=== PATIENT | female | born 1965 | race Caucasian/White ===

== ENCOUNTER → 2017-11-11 08:40 | Outpatient (CLI) | payer OTHER, SELFPAY ==
[2017-11-11 09:42] VITALS: PULSE 68; PULSE 70
== END ==
PROVIDERS: PCP Family Medicine; Visit Provider Internal Medicine
DX: R06.02 Shortness of breath (principal); I25.10 Atherosclerotic heart disease of native coronary artery without angina pectoris; I49.3 Ventricular premature depolarization; I34.0 Nonrheumatic mitral (valve) insufficiency; Q21.1 Atrial septal defect
CPT/HCPCS: 94060; 94640; 94726; 94729

== ENCOUNTER 2023-08-14 09:20 | Observation (INO) | payer MEDICARE, SELFPAY ==
--- NOTE | 2023-08-14 09:26 | PC.NURSE ---
arrived by ambulance stretcher from [facility]
[2023-08-14 09:50] VITALS: PULSE 80
[2023-08-14 09:52] VITALS: BP 119/75; PULSE 84; RESP 18; TEMP 36.7; O2SAT 91; BMI 25.2
[2023-08-14 10:21] LABS: Troponin I < 0.01 ng/ml (0.00-0.034)
--- NOTE | 2023-08-14 10:31 | P.CONPHA_ITS ---
Pharmacy Intervention Comments: MEDICATION RECONCILIATION COMPLETE USING LIST FROM [facility], EXTERNAL PHARMACY FILL HISTORY, AND DAVID REPORT.
--- NOTE | 2023-08-14 10:31 | HMH.PHAINT1 ---
Pharmacy Intervention Comments: MEDICATION RECONCILIATION COMPLETE USING LIST FROM [facility], EXTERNAL PHARMACY FILL HISTORY, AND DAVID REPORT.
[2023-08-14 10:38] LABS: Thyroid Stimulating Hormone 0.65 uIU/mL (0.465-4.68)
--- NOTE | 2023-08-14 11:03 | ECG_ITS ---
APPROVED REPORT Exam: Resting ECG HR:80 bpm ECG Measurements Heart Rate 80 AXES AL 183 P 47 QRSd 126 QRS 47 QT 409 T 103 QTc 445 Conclusion SINUS RHYTHM MODERATE INTRAVENTRICULAR CONDUCTION DELAY [110+ ms QRS DURATION] NONSPECIFIC ST & T-WAVE ABNORMALITY BORDERLINE ECG Electronically signed by : MICHEAL CASTILLO, 08/15/2023 00:14:18
[2023-08-14 11:05] LABS: Hemoglobin A1C 4.8 % (4.0-6.0)
--- NOTE | 2023-08-14 11:11 | P.HP_ITS ---
History of Present Illness *Admission Date: 08/14/23 *Reason for visit:: Chest pain, anxiety *History of present illness: Ms. Cortes is a 57-year-old female with history of severe anxiety, issues including history of patent foramen ovale. Status post closure of PFO, mitral valve repair in 2019, Maze procedure. Continues to smoke. Has history of CAD. Follows with cardiology in [place]. She has presented twice in the past 24 hours to the ER in [place] and subsequently in [place] with complaint of chest pain and palpitations. On arrival to the ER, her troponins were 11 and 12. EKG showed concern for some T wave inversions. Given her cardiac history, tobacco use disorder, and complaint of chest pain, cardiology was contacted for transfer for further evaluation. Patient was accepted for transfer. On arrival to [facility], patient is hemodynamically stable. Blood pressure was e levated with systolics in the 150s on arrival to the ER at [place]. Blood pressures in the 1 teens on arrival to [facility]. Chest pain appears resolved. Complaining of having frequent PVCs. She is stable on room air. States the symptoms have been longstanding but worse over the past 24 to 48 hours leading to her going to the ER. Denies any nausea, vomiting. Has significant complain about anxiety. Speech is tangential. States she is on Klonopin 3 times a day and without it she has withdrawal symptoms. History of seizure for which she takes Lamictal. No history of seizure in over 13 years. is with her in the bed. [facility] Disclaimer: The information contained in this section may have been updated after the patient was seen, as this information can be updated by other users. Medical History Cataract Post-op pain Pre-op evaluation Surgical History S/P ACL repair History of cholecystectomy S/P mitral valve repair Family History Other No significant family history Social History Smoking Status: Current every day smoker tobacco type: cigarettes alcohol intake: never current occupational status: unemployed and disabled Travel in the last 8 weeks: None household members: spouse Review of Systems Review of Systems Review of systems (narrative): 14 point review of systems performed, pertinent positives and negatives as per HPI Meds Home Medications and Allergies Home Medications Medication Instructions Recorded Confirmed Type clonazepam 0.5 mg tablet (Klonopin) 1 mg PO TIDP PRN Anxiety 10/07/17 08/14/23 History lamotrigine 100 mg tablet 200 mg PO BID 10/07/17 08/14/23 History New Prescriptions to Start Prescriptions: Allergies Allergy/AdvReac Type Severity Reaction Status Date / Time sulfamethoxazole Allergy Verified 08/14/23 09:41 [From Bactrim] trimethoprim [From Bactrim] Allergy Verified 08/14/23 09:41 adhesive AdvReac Verified 12/12/17 14:10 Exam Data for Last 24 hours Vital signs and Labs for Last 24 Hours: Temp Pulse Resp BP Pulse Ox O2 Del Method 98.0 F 84 18 119/75 91 L Room Air 08/14/23 09:52 08/14/23 09:52 08/14/23 09:52 08/14/23 09:52 08/14/23 09:52 08/14/23 09:52 Laboratory Results - last 24 hr 08/14/23 09:40: Hemoglobin A1c 4.8, Troponin I < 0.01, TSH 0.65 I & O for Last 24 hours: Intake & Output 08/11/23 08/12/23 08/13/23 08/14/23 23:59 23:59 23:59 23:59 Weight 73.028 kg Constitutional Constitutional: no acute distress, average body habitus, chronically ill appearing and disheveled *Routine HEENT Exam Head: Present normocephalic Eye: Present EOMI and PERRL ENT: Present mucous membranes moist *Routine Neck Exam Neck: Present supple; Absent lymphadenopathy *Routine Respiratory Exam Respiratory: Present CTA bilaterally; Absent rhonchi, wheezes or crackles *Routine Cardiovascular Exam Cardiovascular: Present RRR *Routine Abdominal Exam Abdominal: Present soft and normoactive bowel sounds; Absent tenderness *Routine Rectal Exam Rectal:: deferred *Routine Genitalia Exam Genitalia:: deferred *Routine Extremities Exam Extremities: Absent cyanosis, clubbing or edema *Routine Skin Exam Skin: Present intact and warm; Absent rash *Routine Neurological Exam Neurological: Present alert, oriented X3 and moving all extremities; Absent altered mental status Routine Psychiatric Exam Psychiatric: Present anxious Assessment and Plan *Assessment and plan (1) Atypical angina: Status: Acute Category: Medical Code(s): I20.89 - Other forms of angina pectoris (2) Symptomatic PVCs: Status: Chronic Category: Medical Code(s): I49.3 - Ventricular premature depolarization (3) CAD (coronary artery disease): Status: Chronic Qualifiers: Associated angina: without angina Coronary Disease-Associated Artery/Lesion type: [place] artery [place] vs. transplanted heart: havas[place]ai heart Qualified Code(s): I25.10 - Atherosclerotic heart disease of havas[place]ai coronary artery without angina pectoris Category: Medical Code(s): I25.10 - Atherosclerotic heart disease of havas[place]ai coronary artery without angina pectoris (4) PFO (patent foramen ovale): Status: Acute Category: Medical Code(s): Q21.1 - Atrial septal defect (5) History of radiofrequency ablation (RFA) procedure for cardiac arrhythmia: Status: Chronic Category: Surgical Code(s): Z98.890 - Other specified postprocedural states (6) Intermittent palpitations: Status: Chronic Category: Medical Code(s): R00.2 - Palpitations (7) S/P mitral valve repair: Status: Chronic Category: Surgical Code(s): Z98.890 - Other specified postprocedural states (8) Severe anxiety: Status: Acute Category: Medical Code(s): F41.9 - Anxiety disorder, unspecified (9) Tobacco use disorder: Status: Acute Category: Medical Code(s): F17.200 - Nicotine dependence, unspecified, uncomplicated Plan Ms. Cortes is a 57-year-old female with extensive cardiac history, anxiety, tobacco use disorder. Transferred to [facility] after being excepted by cardiology due to concern by the ER [facility] for unstable angina. Discussed case with ER physician, request transfer given patient's cardiac history, repeat ER visits for chest pain, and significant cardiac risk factors. Medicine agreed to admit for further management. Will monitor on telemetry overnight with serial troponins. Initial troponin less than 0.01. Cardiology consulted and assisting with care. Problems addressed as follows: Unstable vs Atypical angina History of mitral valve repair History of PVCs History of PFO repair History of radiofrequency ablation and atrial clip -Serial troponins. Initial troponins at outside hospital unremarkable. Initial troponin at [facility] less than 0.01. -EKG obtained with no ST depressions or inversions. Review of chart shows EKGs from 2018 that have anterior lead T wave inversions. -Received 5 mg of metoprolol at outside hospital. Will continue low-dose metoprolol succinate 12.5 mg nightly. -Monitor on telemetry overnight. Cardiology consulted, appreciate their recommendations. -Reviewed labs from outside hospital, kidney function at baseline with BUN of 11, creatinine 1.2. Potassium 4.1. Normal H&H. -Discussion in the morning with cardiology regarding inpatient eval versus close outpatient workup for chest pain etiology. -Echo pending -CBC, CMP, magnesium, lipid panel ordered for the morning. - TSH 0.65. A1c 4.8 Severe anxiety Seizure disorder -Continue home Klonopin 1 mg 3 times a day -Continue Lamictal 200 mg twice daily -Would benefit from referral to psychiatry for further treatment of her anxiety as it is likely a large component of her chest discomfort. Tobacco use disorder: Nicotine patch as needed 21 mg Full code Cardiac diet, n.p.o. at midnight Lovenox x 1
[2023-08-14 12:00] VITALS: PULSE 90
[2023-08-14] MEDS: lamoTRIgine 100MG TABLET 200 MG PO ×2 (12:15→20:10)
[2023-08-14] MEDS: clonazePAM 0.5MG TABLET 1 MG PO ×2 (12:17→20:10)
[2023-08-14] MEDS: ENOXAPARIN 40MG/0.4ML SYRINGE 40 MG SQ (13:17)
[2023-08-14 13:23] LABS: Troponin I < 0.01 ng/ml (0.00-0.034)
[2023-08-14 15:54] LABS: Troponin I < 0.01 ng/ml (0.00-0.034)
[2023-08-14 16:00] VITALS: BP 108/68; PULSE 83; PULSE 85; RESP 18; TEMP 36.8; O2SAT 93
[2023-08-14 20:00] VITALS: BP 124/52; PULSE 84; RESP 22; TEMP 36.8; O2SAT 95
[2023-08-14] MEDS: METOPROLOL SUCCINATE XL 25MG TABLET 12.5 MG PO (20:10)
[2023-08-14] MEDS: NICOTINE 21MG/24HR PATCH 21 MG TD (20:20)
[2023-08-15] VITALS: BP 116/68; PULSE 88; RESP 18; TEMP 36.7; O2SAT 97
[2023-08-15 04:00] VITALS: BP 107/64; PULSE 76; PULSE 83; RESP 18; TEMP 36.8; O2SAT 94; BMI 25.2
--- NOTE | 2023-08-15 04:29 | PC.NURSE ---
Patient has rested through the shift. Patient did complain that she only got two doses of her anxiety medication, when she normally takes 3, RN educated patient that she will get her 3 doses tomorrow, but that she got her afternoon dose and evening dose while she was here. Patient wore 2 L NC at night due to patient not having her own Cpap with her. Patient has remained at bedside through the night and laid in bed with her to help her anxiety. Patient has not had any other complaints
[2023-08-15 06:13] LABS: Basophils # 0.1 K/mm3 (0-0.2); Basophils % 0.9 % (0.1-2.0); Eosinophils # 0.2 K/mm3 (0.0-0.4); Eosinophils % 3.8 % (0.1-12.0); Hematocrit 41.5 % (37.0-47.0); Hemoglobin 13.8 g/dL (12.2-16.2); Lymphocytes # 1.7 K/mm3 (0.7-4.5); Lymphocytes % 26.9 % (10-50); Mean Corpuscular HGB Conc 33.4 g/dL (31.8-35.4); Mean Corpuscular Hemoglobin 31.1 pg (27.0-31.2); Mean Corpuscular Volume 93.3 fl (81-99); Mean Platelet Volume 8.2 fl (7.4-10.4); Monocytes # 0.4 K/mm3 (0.1-1.0); Monocytes % 5.8 % (1.7-9.3); Neutrophils % 62.6 % (37.0-80.0); Platelet Count 285 K/mm3 (142-424); Red Blood Count 4.45 M/mm3 (4.20-5.40); Red Cell Distribution Width 14.1 % (11.5-17.5); White Blood Count 6.4 K/mm3 (4.8-10.8)
[2023-08-15 06:27] LABS: Alanine Aminotransferase 19 U/L (12-78); Albumin Level 3.9 g/dl (3.5-5.0); Albumin/Globulin Ratio 1.6 (1.1-1.8); Alkaline Phosphatase 91 U/L (38-126); Anion Gap 9.1 mEq/L (5-15); Aspartate Amino Transferase 31 U/L (14-36); Bilirubin,Total 0.4 mg/dl (0.2-1.3); Blood Urea Nitrogen 13 mg/dl (7-17); Calcium 9.4 mg/dl (8.4-10.2); Carbon Dioxide 30 mmol/L (22.0-30.0); Chloride 103 mmol/L (98-107); Creatinine Clearance Estimated 67 mL/min (50-200); Estimated Glomerular Filt Rate 52 ml/min (>60); GFR (African American) 62 ML/MIN (>60); Globulin 2.5 g/dL (1.3-3.2); Glucose 110 mg/dl (74-100); Magnesium 2.2 mg/dl (1.6-2.3); Potassium 4.1 mmoL/L (3.5-5.1); Sodium 138 mmol/L (136-145); Total Protein,Serum 6.4 g/dl (6.3-8.2)
[2023-08-15 08:00] VITALS: BP 129/79; PULSE 80; RESP 16; TEMP 36.6; O2SAT 98
[2023-08-15] MEDS: clonazePAM 0.5MG TABLET 1 MG PO (08:26)
[2023-08-15] MEDS: lamoTRIgine 100MG TABLET 200 MG PO (08:27)
[2023-08-15 12:00] VITALS: BP 121/73; PULSE 73; PULSE 80; RESP 16; TEMP 36.6; O2SAT 94
[2023-08-15] MEDS: clonazePAM 1MG TABLET 1 MG PO (13:10)
--- NOTE | 2023-08-15 13:33 | PC.NURSE ---
pt started crying hysterically and stated that she was worried about her EF. When this RN asked what she meant she stated, My EF is 45%. It's different from my one in [place]. I attempted to call the cardiology office and left a voicemail.
--- NOTE | 2023-08-15 14:15 | P.CONCA_ITS ---
History of Present Illness History of Present Illness Consult date: 08/15/23 Requesting physician: Arthur Hennessy Chief complaint: palpitations Additional Medical History:: History of present illness: 57 yo WF with hx of mitral valve ring repair. KVNG clip, and MAZE procedure in 2018 at and 3 prior PVC ablations at [facility]. No known CAD or LV dysfunction, typically follows with Dr. Martin. Pt does not take any cardiac meds at baseline - just Clonazepam 3mg TID for anxiety/PTSD and Lamictal for Sz (last 10 years ago). She states when her anxiety/panic flares up, her palpita tions/PVCs get worse which is why she presented to the hospital. She states she has weaned herself down from Clonazepam 6mg TID and her anxiety has been worse. She presented to 2 different ERs over the weekend with worsening palps. She was last seen in [facility] [place] ED and tx here for t-wave inversions and HS-Trop of 11 then 12. On arrival here she has been asymptomatic with normal Trop, EKG, and Tele. ECHO on arrival shows questionably mild reduction in EF to 45% PFSH PFS Disclaimer: The information contained in this section may have been updated after the patient was seen, as this information can be updated by other users. Medical History Cataract Post-op pain Pre-op evaluation Surgical History S/P ACL repair History of cholecystectomy S/P mitral valve repair Family History Other No significant family history Social History Smoking Status: Current every day smoker tobacco type: cigarettes alcohol intake: never current occupational status: unemployed and disabled Travel in the last 8 weeks: None household members: spouse Review of Systems Constitutional Constitutional: Denies fatigue and Denies weakness Eyes Eyes: Denies loss of vision ENT Ears, Nose, Mouth, and Throat: Denies hearing loss and Denies vertigo *Cardiovascular Cardiovascular: Denies chest pain, Denies dyspnea and Denies syncope Comments: palpitations *Respiratory Respiratory: Denies cough and Denies dyspnea *Gastrointestinal Gastrointestinal: Denies change in stool character, Denies nausea and Denies vomiting *Musculoskeletal Musculoskeletal: Denies muscle weakness Integumentary/Breasts Skin/Breast: Denies changing lesions *Neurologic Neurologic: Denies loss of vision, Denies syncope, Denies vertigo and Denies weakness Endocrine Endocrine: Denies fatigue Exam Data for Last 24 hours Vital signs and Labs for Last 24 Hours: Temp Pulse Resp BP Pulse Ox O2 Del Method O2 Flow Rate 98 F 73 16 121/73 94 L Room Air 2 08/15/23 12:00 08/15/23 12:00 08/15/23 12:00 08/15/23 12:00 08/15/23 12:00 08/15/23 11:00 08/15/23 05:00 Laboratory Results - last 24 hr 08/14/23 15:30: Troponin I < 0.01 08/15/23 05:34: WBC 6.4, RBC 4.45, Hgb 13.8, Hct 41.5, MCV 93.3, MCH 31.1, MCHC 33.4, RDW 14.1, Plt Count 285, MPV 8.2, Neut % (Auto) 62.6, Lymph % (Auto) 26.9, [place] % (Auto) 5.8, Eos % (Auto) 3.8, Baso % (Auto) 0.9, Neut # (Auto) 4.0, Lymph # (Auto) 1.7, [place] # (Auto) 0.4, Eos # (Auto) 0.2, Baso # (Auto) 0.1, Sodium 138, Potassium 4.1, Chloride 103, Carbon Dioxide 30, Anion Gap 9.1, BUN 13, Creatinine 1.10 H, Estimated Creat Clear 67, Estimated GFR 52 L, Est GFR ( Amer) 62, Glucose 110 H, Calcium 9.4, Magnesium 2.2, Total Bilirubin 0.4, AST 31, ALT 19, Alkaline Phosphatase 91, Total Protein 6.4, Albumin 3.9, Globulin 2.5, Albumin/Globulin Ratio 1.6 I & O for Last 24 hours: Intake & Output 08/12/23 08/13/23 08/14/23 08/15/23 23:59 23:59 23:59 23:59 Intake Total 805 / 805 480 / 480 Output Total 0 / 0 Balance 805 / 805 480 / 480 Weight 161 lb 160 lb 15.987 oz Constitutional Constitutional: no acute distress and cooperative *Routine HEENT Exam Eye: Present PERRL *Routine Respiratory Exam Respiratory: Present CTA bilaterally; Absent accessory muscle use, wheezes or crackles *Routine Cardiovascular Exam Cardiovascular: Present RRR, Normal S1 and Normal S2; Absent murmur, gallop or rubs *Routine Abdominal Exam Abdominal: Present soft; Absent tenderness *Routine Extremities Exam Extremities: Present pulses intact; Absent cyanosis or edema *Routine Skin Exam Skin: Present intact; Absent erythema or wounds *Routine Neurological Exam Neurological: Present alert and oriented X3 Routine Psychiatric Exam Psychiatric: Present cooperative Meds Home Medications and Allergies Home Medications Medication Instructions Recorded Confirmed Type lamotrigine 100 mg tablet 200 mg PO BID 10/07/17 08/14/23 History clonazepam 1 mg tablet 1 mg PO TIDP PRN Anxiety 08/15/23 08/15/23 History New Prescriptions to Start Prescriptions: Allergies Allergy/AdvReac Type Severity Reaction Status Date / Time sulfamethoxazole Allergy Verified 08/14/23 09:41 [From Bactrim] trimethoprim [From Bactrim] Allergy Verified 08/14/23 09:41 adhesive AdvReac Verified 12/12/17 14:10 Assessment and Plan *Assessment and plan (1) Symptomatic PVCs: Status: Chronic Category: Medical Code(s): I49.3 - Ventricular premature depolarization (2) History of radiofrequency ablation (RFA) procedure for cardiac arrhythmia: Status: Chronic Category: Surgical Code(s): Z98.890 - Other specified postprocedural states (3) Atypical angina: Status: Acute Category: Medical Code(s): I20.89 - Other forms of angina pectoris (4) PFO (patent foramen ovale): Status: Acute Category: Medical Code(s): Q21.1 - Atrial septal defect (5) S/P mitral valve repair: Status: Chronic Category: Surgical Code(s): Z98.890 - Other specified postprocedural states (6) Severe anxiety: Status: Acute Category: Medical Code(s): F41.9 - Anxiety disorder, unspecified (7) Tobacco use disorder: Status: Acute Category: Medical Code(s): F17.200 - Nicotine dependence, unspecified, uncomplicated Plan Symptomatic PVCs - long hx of this, s/p 3 prior ablations at [facility] per pt - worsening secondary to severe panic/anxiety and trying to wean down her BDZ - improved here with anxiety control and beta blockers - she reports she already wore a 2 week monitor and sent to [facility] but does not have results yet s/p Mitral Valve Ring repair at [facility] 2018 - ECHO here shows mild MR, normal function HFrEF? - TTE here shows EF mildly reduced around 45% - will check ECHO with [facility] for verification Further plans pending limited ECHOw/contrast result. If normal EF she can go home with BB, if reduced will add GDMT and arrange further testing outpatient.
[2023-08-15] MEDS: DEFINITY US ECHO CONTRAST 2ML INJ 2 MG IV (15:19)
[2023-08-15 16:00] VITALS: BP 110/61; PULSE 79; PULSE 80; RESP 17; TEMP 36.6; O2SAT 96
--- NOTE | 2023-08-15 17:48 | CA_ITS ---
APPROVED REPORT EXAM: Comprehensive 2D, Doppler, and color-flow Echocardiogram Case Specialist: Alee Moody RT(R) Ht: 5 ft 7 in Wt: 161lbs BSA: 1.84 BP: 119/75 mmHg Indications: CP, MV repair 2018, PFO closure, smoker, palpitations, hx maze procedure, CAD, atrial clip Echo Enhancing Agent Indication: Endocardial border delineation Agent(s) / Amount(s) Used: Definity 2 cc 2D Dimensions LVEF ([place]'s) 48.80 % F: 54 - 74 LV Volume 98.20 mL F: 46 - 106 LV Volume Index 53.1 mL/m2 F: 29 - 61 LA Volume 50.60 mL LA Volume Index 27.35 mL/m2 (M/F) 16-34 EF AP4 51.40 % EF AP2 46.0 % EF BP 48.8 % GL Strain -11.9 % M-Mode Dimensions RVDd 3.57 cm (0.9-2.6) LA Diam 4.35 cm (1.9-4.0) LVDd 5.51 cm (3.5-5.7) LVDs 4.26 cm (3.5-5.7) IVSd 0.95 cm (0.6-1.1) PWd 0.87 cm (0.6-1.1) EF (Teich) 45.10% FS 22.70% EDV (Teich) 148.00 mL ESV (Teich) 81.30 mL LV Diastology E Decel Time 297 (160-240 msec) E/A Ratio 1.9 Aortic Valve AI PHT 866.00 ms AO VTI 40.8 (18-25 cm) Mitral Valve MV E Max Rafael. 148.0 (40-130 cm/s) MV A Velocity 76.0 (40-130 cm/s) E/A Ratio 1.96 MV PHT 87.0 ms Left Ventricle The left ventricle is normal size. Left ventricular systolic function is mildly decreased. There is increased LV wall thickness. There is mild global hypokinesis present. Diastolic function is indeterminate. No left ventricle thrombus noted on this study. LVEF is 45%. Right Ventricle The right ventricle is normal size. The right ventricular systolic function is normal. Atria Left atrium is mildly dilated. The right atrium size is normal. s/p PFO closure and KVNG clipping. The interatrial septum is not well-visualized in this study. Aortic Valve The aortic valve is mildly thickened. There is no aortic valvular stenosis. Mild aortic regurgitation Mitral Valve s/p mitral valve repair. Mean MV gradient 4 mmHg (HR 71 bpm). Mild mitral regurgitation. Tricuspid Valve The tricuspid valve leaflets are thin and pliable. Trace tricuspid regurgitation. There is insufficient TR jet to estimate RVSP. Pulmonic Valve The pulmonary valve is normal in structure. Trace pulmonic regurgitation. Great Vessels The aortic root is normal in size. The ascending aorta is not well-visualized. IVC is normal in size and collapses >50% with inspiration. Pericardium There is no pericardial effusion. Other Information Study Quality: Technically Difficult Conclusion Technically difficult study due to poor acoustic windows. Mildly reduced LV systolic function (LVEF 45%). Mild LA dilation. Mild AI. s/p MVR. Mild MR. Acceptable mean MV gradient of 4 mmHg (HR 71 bpm). s/p PFO closure and KVNG clipping. The interatrial septum is not well-visualized in this study. Electronically signed by : Marielena Wu MD 08/16/2023 12:43:04
--- NOTE | 2023-08-15 18:11 | EXP.DC.SUM ---
General Admission date:: 08/14/23 Discharge date: 08/15/23 HPI HPI HPI: Ms. Cortes is a 57-year-old female with history of severe anxiety, issues including history of patent foramen ovale. Status post closure of PFO, mitral valve repair in 2019, Maze procedure. Continues to smoke. Has history of CAD. Follows with cardiology in [place]. She has presented twice in the past 24 hours to the ER in [place] and subsequently in [place] with complaint of chest pain and palpitations. On arrival to the ER, her troponins were 11 and 12. EKG showed concern for some T wave inversions. Given her cardiac history, tobacco use disorder, and complaint of chest pain, cardiology was contacted for transfer for further evaluation. Patient was accepted for transfer. On arrival to [facility], patient is hemodynamically stable. Blood pressure was elevated with systolics in the 150s on arrival to the ER at [place]. Blood pressures in the 1 teens on arrival to [facility]. Chest pain appears resolved. Complaining of having frequent PVCs. She is stable on room air. States the symptoms have been longstanding but worse over the past 24 to 48 hours leading to her going to the ER. Denies any nausea, vomiting. Has significant complain about anxiety. Speech is tangential. States she is on Klonopin 3 times a day and without it she has withdrawal symptoms. History of seizure for which she takes Lamictal. No history of seizure in over 13 years. is with her in the bed. Hospital Course Hospital Course Hospital Course: Ms. Cortes is a 57-year-old female with extensive cardiac history, anxiety, tobacco use disorder. Transferred to [facility] after being excepted by cardiology due to concern by the ER [facility] for unstable angina. Discussed case with ER physician, request transfer given patient's cardiac history, repeat ER visits for chest pain, and significant cardiac risk factors. Medicine agreed to admit for further management. Will monitor on telemetry overnight with serial troponins. Initial troponin less than 0.01. Cardiology consulted and assisting with care. Problems addressed as follows: Unstable vs Atypical angina History of mitral valve repair History of PVCs History of PFO repair History of radiofrequency ablation and atrial clip -Serial troponins. Initial troponins at outside hospital unremarkable. Initial troponin at [facility] less than 0.01. Serial troponins remain negative. Patient was monitored on telemetry. EKG obtained at time of admission showed no ST depressions or inversions. Echo was obtained showing reduced ejection fraction of 45% with mitral insufficiency. Cardiology was consulted and assisted with care. Patient was initiated on metoprolol succinate 25 mg nightly, will discharge on this new medication. She seemed quite anxious about her reduced ejection fraction and is worried about having heart failure and that it is just cannot get worse. Offered reassurance. Patient's anxiety is severe and impacts her ability to rationalize the information she is being informed with. Explained to at bedside her condition and the need to take medications to decrease her PVCs. Also stressed the importance on close follow-up. Will initiate spironolactone 25 mg daily and Farxiga 10 Lali daily for new diagnosis of heart failure with reduced ejection fraction. Kidney function electrolytes stable. Thyroid function normal with TSH of 0.65. A1c 4.8. Stable to discharge home with close follow-up. Patient also is adamant she does not want to be in the hospital any longer. Discharged in stable condition with normal hemodynamics. Severe anxiety Seizure disorder -Continue home Klonopin 1 mg 3 times a day, Continue Lamictal 200 mg twice daily. Strongly encourage patient to follow-up with psychiatry. Had cyclical discussion about seeing psychiatry here versus at home in [place]. Speech would become tangential at times. No formal decision made. Patient fixated on her Klonopin and the need to take it. States she would like to come off of it but then states home when she needs it. Counseled that therapy and counseling would be an important adjunct to her medications as pills alone and not can take away her anxiety. Specifically asked about thoughts of hurting herself or others. She states she has had thoughts in the past but does not have any active thoughts of self-harm or homicidal thoughts. Deemed stable from a psychiatric standpoint to discharge home in the care of her . -Would benefit from referral to psychiatry for further treatment of her anxiety as it is likely a large component of her chest discomfort. Tobacco use disorder: Nicotine patch as needed 21 mg during admission. Patient has no intention of stopping smoking. Total time spent on discharge 40 minutes in counseling, documentation, chart review, and direct care with patient. Exam Data for Last 24 hours Vital signs and Labs for Last 24 Hours: Temp Pulse Resp BP Pulse Ox O2 Del Method O2 Flow Rate 97.9 F 79 17 110/61 96 Room Air 2 08/15/23 16:00 08/15/23 16:00 08/15/23 16:00 08/15/23 16:00 08/15/23 16:00 08/15/23 17:00 08/15/23 05:00 Laboratory Results - last 24 hr 08/15/23 05:34: WBC 6.4, RBC 4.45, Hgb 13.8, Hct 41.5, MCV 93.3, MCH 31.1, MCHC 33.4, RDW 14.1, Plt Count 285, MPV 8.2, Neut % (Auto) 62.6, Lymph % (Auto) 26.9, [place] % (Auto) 5.8, Eos % (Auto) 3.8, Baso % (Auto) 0.9, Neut # (Auto) 4.0, Lymph # (Auto) 1.7, [place] # (Auto) 0.4, Eos # (Auto) 0.2, Baso # (Auto) 0.1, Sodium 138, Potassium 4.1, Chloride 103, Carbon Dioxide 30, Anion Gap 9.1, BUN 13, Creatinine 1.10 H, Estimated Creat Clear 67, Estimated GFR 52 L, Est GFR ( Amer) 62, Glucose 110 H, Calcium 9.4, Magnesium 2.2, Total Bilirubin 0.4, AST 31, ALT 19, Alkaline Phosphatase 91, Total Protein 6.4, Albumin 3.9, Globulin 2.5, Albumin/Globulin Ratio 1.6 I & O for Last 24 hours: Intake & Output 08/12/23 08/13/23 08/14/23 08/15/23 23:59 23:59 23:59 23:59 Intake Total 805 / 805 480 / 480 Output Total 0 / 0 Balance 805 / 805 480 / 480 Weight 73.028 kg 73.028 kg Constitutional Constitutional: no acute distress, average body habitus, disheveled and cooperative *Routine HEENT Exam Head: Present normocephalic Eye: Present EOMI and PERRL ENT: Present mucous membranes moist *Routine Neck Exam Neck: Present supple; Absent lymphadenopathy Routine Chest/Breast/Axilla Exam Comments: well healed midline scar *Routine Respiratory Exam Respiratory: Present CTA bilaterally *Routine Cardiovascular Exam Cardiovascular: Present RRR *Routine Abdominal Exam Abdominal: Present soft and normoactive bowel sounds; Absent tenderness *Routine Rectal Exam Patient deferred: visual exam *Routine Exam Patient deferred: external exam *Routine Extremities Exam Extremities: Absent cyanosis, clubbing or edema *Routine Skin Exam Skin: Present warm; Absent rash *Routine Neurological Exam Neurological: Present alert, oriented X3 and moving all extremities; Absent altered mental status Routine Psychiatric Exam Psychiatric: Present anxious; Absent normal affect, suicidal ideation, homicidal ideation, good insight or good judgment Comments: tearful at times, severe anxiety, at baseline per at bedside Results Data Completed and Pending Labs on day of discharge: Labs from last 24 hours 08/15/23 05:34 WBC 6.4 RBC 4.45 Hgb 13.8 Hct 41.5 MCV 93.3 MCH 31.1 MCHC 33.4 RDW 14.1 Plt Count 285 MPV 8.2 Neut % (Auto) 62.6 Lymph % (Auto) 26.9 [place] % (Auto) 5.8 Eos % (Auto) 3.8 Baso % (Auto) 0.9 Neut # (Auto) 4.0 Lymph # (Auto) 1.7 [place] # (Auto) 0.4 Eos # (Auto) 0.2 Baso # (Auto) 0.1 Sodium 138 Potassium 4.1 Chloride 103 Carbon Dioxide 30 Anion Gap 9.1 BUN 13 Creatinine 1.10 H Estimated Creat Clear 67 Estimated GFR 52 L Est GFR ( Amer) 62 Glucose 110 H Calcium 9.4 Magnesium 2.2 Total Bilirubin 0.4 AST 31 ALT 19 Alkaline Phosphatase 91 Total Protein 6.4 Albumin 3.9 Globulin 2.5 Albumin/Globulin Ratio 1.6 DS: Diagnosis Discharge Diagnosis (1) Symptomatic PVCs: Status: Chronic Code(s): I49.3 - Ventricular premature depolarization (2) History of radiofrequency ablation (RFA) procedure for cardiac arrhythmia: Status: Chronic Code(s): Z98.890 - Other specified postprocedural states (3) Atypical angina: Status: Acute Code(s): I20.89 - Other forms of angina pectoris (4) PFO (patent foramen ovale): Status: Acute Code(s): Q21.1 - Atrial septal defect (5) S/P mitral valve repair: Status: Chronic Code(s): Z98.890 - Other specified postprocedural states (6) Severe anxiety: Status: Acute Code(s): F41.9 - Anxiety disorder, unspecified (7) Tobacco use disorder: Status: Acute Code(s): F17.200 - Nicotine dependence, unspecified, uncomplicated Meds Home Medications and Allergies Home Medications Medication Instructions Recorded Confirmed Type lamotrigine 100 mg tablet 200 mg PO BID 10/07/17 08/16/23 History clonazepam 1 mg tablet 1 mg PO TIDP PRN Anxiety 08/15/23 08/16/23 History dapagliflozin propanediol 10 mg 10 mg PO DAILY #30 tabs 08/15/23 Rx tablet (Farxiga) spironolactone 25 mg tablet 25 mg PO DAILY #30 tabs 08/15/23 08/16/23 Rx metoprolol succinate 25 mg 25 mg PO HS 90 days #90 tabs 08/16/23 08/16/23 Rx tablet,extended release 24 hr New Prescriptions to Start Prescriptions: dapagliflozin propanediol [Farxiga] Arthur Hennessy spironolactone Arthur Hennessy Allergies Allergy/AdvReac Type Severity Reaction Status Date / Time sulfamethoxazole Allergy Verified 08/16/23 14:48 [From Bactrim] trimethoprim [From Bactrim] Allergy Verified 08/16/23 14:48 adhesive AdvReac Verified 08/16/23 14:48 Discharge Plan Disposition Patient Disposition: Home, Self-Care Condition: Fair Follow up Plan Follow up with: Melly Bland PA [Primary Care Provider] - 08/17/23 3:00 pm Luis Wu MD [Staff Physician] - Enter time for follow up (please call for appointmet ) Prescriptions/Medication Reconciliation: New dapagliflozin propanediol [Farxiga] 10 mg tablet 10 mg PO DAILY Qty: 30 0RF spironolactone 25 mg tablet 25 mg PO DAILY Qty: 30 0RF Continued lamotrigine 100 mg tablet 200 mg PO BID clonazepam 1 mg tablet 1 mg PO TIDP PRN (Reason: Anxiety) No Action metoprolol succinate 25 mg tablet extended release 24 hr 25 mg PO HS 90 Days Qty: 90 3RF Problem Reconciliation Problems Reviewed?: Yes Patient Discharge Instructions ACTIVITY: Continue current activity DIET: continue same diet Patient Instructions: Angina, DI for Angina Providers Primary Care Provider: Melly Bland Admit Provider: Arthur Hennessy Attending Provider: Arthur Hennessy
[2023-08-15] MEDS: METOPROLOL SUCCINATE XL 25MG TABLET 25 MG PO (18:25)
--- NOTE | 2023-08-16 12:53 | CARE MANAGER ---
Attempted to contact patient related to hospital discharge. Neither phone numbers on file work for patient.
== END 2023-08-15 18:46 | disposition home or self-care (01) ==
PROVIDERS: Admitting Provider Internal Medicine Adolescent Medicine; PCP Physician Assistant; Visit Provider Internal Medicine Adolescent Medicine
DX: I49.3 Ventricular premature depolarization; I25.118 Atherosclerotic heart disease of native coronary artery with other forms of angina pectoris; R00.2 Palpitations; Z95.4 Presence of other heart-valve replacement; F41.9 Anxiety disorder, unspecified; F17.210 Nicotine dependence, cigarettes, uncomplicated; I50.20 Unspecified systolic (congestive) heart failure; Z79.899 Other long term (current) drug therapy; Q21.12 Patent foramen ovale
CPT/HCPCS: G0379; 36415; 80053; 83036; 83735; 84443; 84484; 85025; 93005; 93306; G0378; Q9957

== ENCOUNTER 2023-08-16 15:55 | Outpatient (CLI) | payer MEDICARE, SELFPAY ==
[2023-08-16 17:11] LABS: Basophils # 0.1 K/mm3 (0-0.2); Basophils % 0.8 % (0.1-2.0); Eosinophils # 0.2 K/mm3 (0.0-0.4); Eosinophils % 2.4 % (0.1-12.0); Hematocrit 46.3 % (37.0-47.0); Lymphocytes # 1.4 K/mm3 (0.7-4.5); Lymphocytes % 21.2 % (10-50); Mean Corpuscular HGB Conc 32.3 g/dL (31.8-35.4); Mean Corpuscular Hemoglobin 31.2 pg (27.0-31.2); Mean Corpuscular Volume 96.4 fl (81-99); Monocytes # 0.5 K/mm3 (0.1-1.0); Monocytes % 6.6 % (1.7-9.3); Neutrophils # 4.7 K/mm3 (1.8-7.8); Platelet Count 283 K/mm3 (142-424); Red Cell Distribution Width 13.8 % (11.5-17.5); White Blood Count 6.8 K/mm3 (4.8-10.8)
[2023-08-16 17:24] LABS: Alanine Aminotransferase 24 U/L (12-78); Albumin Level 4.2 g/dl (3.5-5.0); Alkaline Phosphatase 78 U/L (38-126); Anion Gap 13.4 mEq/L (5-15); Aspartate Amino Transferase 38 U/L (14-36); Bilirubin,Direct 0.2 mg/dl (0.0-0.4); Bilirubin,Indirect 0.3 mg/dL (0.0-0.9); Bilirubin,Total 0.5 mg/dl (0.2-1.3); Bilirubin,Unconjugated 0.3 mg/dL (0.0-1.1); Blood Urea Nitrogen 15 mg/dl (7-17); Calcium 10.4 mg/dl (8.4-10.2); Carbon Dioxide 30 mmol/L (22.0-30.0); Chloride 102 mmol/L (98-107); Chol/HDL Ratio 4.9 (1-3.5); Cholesterol 207 mg/dl (140-200); Estimated Glomerular Filt Rate 58 ml/min (>60); GFR (African American) 70 ML/MIN (>60); Glucose 100 mg/dl (74-100); HDL Cholesterol 42 mg/dl (40-60); Magnesium 1.7 mg/dl (1.6-2.3); Potassium 4.4 mmoL/L (3.5-5.1); Sodium 141 mmol/L (136-145); Total Protein,Serum 6.7 g/dl (6.3-8.2); Triglycerides 227 mg/dl (30-150); VLDL Cholesterol 45 mg/dL (0-40)
[2023-08-16 17:37] LABS: NT Pro Brain Natriuretic Pep. 240 pg/mL (0-125)
[2023-08-16 17:40] LABS: Free T4 (Free Thyroxine) 1.43 ng/dl (0.78-2.19)
[2023-08-16 17:58] LABS: Thyroid Stimulating Hormone 0.99 uIU/mL (0.465-4.68)
[2023-08-16 18:35] LABS: Folate 6.06 ng/mL
[2023-08-16 18:36] LABS: Total Iron Binding Capacity 309 ug/dL (265-497)
[2023-08-16 19:03] LABS: Ferritin 33.3 ng/ml (11.1-264)
[2023-08-16 19:21] LABS: Iron 64 ug/dL (37-170)
[2023-08-22 10:50] LABS: Selenium 192 ug/L (100-340)
== END 2023-08-16 23:59 | disposition home or self-care (01) ==
LOC: LAB 15:57
PROVIDERS: PCP Physician Assistant; Visit Provider Internal Medicine
DX: R53.83 Other fatigue; I49.3 Ventricular premature depolarization; I25.10 Atherosclerotic heart disease of native coronary artery without angina pectoris; I27.20 Pulmonary hypertension, unspecified; I50.20 Unspecified systolic (congestive) heart failure; Z79.899 Other long term (current) drug therapy
CPT/HCPCS: 36415; 80048; 80061; 80076; 82525; 82728; 82746; 83540; 83550; 83735; 83880; 84255; 84439; 84443; 85025

== ENCOUNTER 2023-08-21 13:03 | Emergency (ER) | payer MEDICARE, SELFPAY ==
[2023-08-21] VITALS (11 sets, daily range): BP systolic 116–153; BP diastolic 71–98; PULSE 74–89; RESP 9–26; TEMP 36.6; O2SAT 94–97; BMI 25.2
--- NOTE | 2023-08-21 13:16 | ECG_ITS ---
APPROVED REPORT Exam: Resting ECG HR:87 bpm ECG Measurements Heart Rate 87 AXES WV 162 P 55 QRSd 128 QRS 87 QT 391 T 62 QTc 435 Conclusion SINUS RHYTHM MODERATE INTRAVENTRICULAR CONDUCTION DELAY [110+ ms QRS DURATION] NONSPECIFIC ST & T-WAVE ABNORMALITY BORDERLINE ECG Electronically signed by : MICHEAL CASTILLO, 08/21/2023 16:19:05
--- NOTE | 2023-08-21 13:18 | XR_ITS ---
PROCEDURE INFORMATION: Exam: XR Chest Exam date and time: 08/21/2023 1:22 PM Age: 57 years old Clinical indication: Other: Chest pain; Additional info: Cp TECHNIQUE: Imaging protocol: Radiologic exam of the chest. Views: 1 view. COMPARISON: No relevant prior studies available. FINDINGS: Lungs: Small indistinct nodular opacity left mid lung zone projecting over the inferior margin of the left scapula, indeterminate.. Remaining lung shane are clear. Pleural spaces: Unremarkable. No pleural effusion. No pneumothorax. Heart/Mediastinum: Heart appears borderline enlarged on this portable chest with evidence of bowel apparent left atrial closure. Bones/joints: Prior median sternotomy. No acute bony abnormalities. IMPRESSION: Indistinct indeterminate nodular opacity left mid lung zone for which nonemergent CT chest recommended for further assessment.
[2023-08-21 13:31] LABS: Chloride 105 mmol/L (98-107)
[2023-08-21 13:32] LABS: Potassium 3.6 mmoL/L (3.5-5.1); Sodium 140 mmol/L (136-145)
[2023-08-21 13:34] LABS: Alanine Aminotransferase 36 U/L (12-78); Alkaline Phosphatase 88 U/L (38-126); Anion Gap 9.6 mEq/L (5-15); Aspartate Amino Transferase 36 U/L (14-36); Bilirubin,Total 0.4 mg/dl (0.2-1.3); Blood Urea Nitrogen 11 mg/dl (7-17); Carbon Dioxide 29 mmol/L (22.0-30.0); Creatinine Clearance Estimated 61 mL/min (50-200); Estimated Glomerular Filt Rate 47 ml/min (>60); GFR (African American) 56 ML/MIN (>60)
[2023-08-21 13:35] LABS: Albumin Level 4.1 g/dl (3.5-5.0); Albumin/Globulin Ratio 1.5 (1.1-1.8); Calcium 9.8 mg/dl (8.4-10.2); Globulin 2.8 g/dL (1.3-3.2); Glucose 102 mg/dl (74-100); Total Protein,Serum 6.9 g/dl (6.3-8.2)
[2023-08-21 13:47] LABS: Troponin I < 0.01 ng/ml (0.00-0.034)
[2023-08-21 13:58] LABS: Basophils # 0.1 K/mm3 (0-0.2); Basophils % 0.6 % (0.1-2.0); Eosinophils # 0.2 K/mm3 (0.0-0.4); Eosinophils % 2.6 % (0.1-12.0); Hematocrit 44.3 % (37.0-47.0); Hemoglobin 14.3 g/dL (12.2-16.2); Lymphocytes # 2.3 K/mm3 (0.7-4.5); Lymphocytes % 29.9 % (10-50); Mean Corpuscular HGB Conc 32.4 g/dL (31.8-35.4); Mean Corpuscular Hemoglobin 30.3 pg (27.0-31.2); Mean Corpuscular Volume 93.6 fl (81-99); Mean Platelet Volume 8.1 fl (7.4-10.4); Monocytes # 0.4 K/mm3 (0.1-1.0); Monocytes % 5.6 % (1.7-9.3); Neutrophils # 4.8 K/mm3 (1.8-7.8); Neutrophils % 61.4 % (37.0-80.0); Platelet Count 273 K/mm3 (142-424); Red Blood Count 4.73 M/mm3 (4.20-5.40); Red Cell Distribution Width 13.7 % (11.5-17.5); White Blood Count 7.8 K/mm3 (4.8-10.8)
--- NOTE | 2023-08-21 14:04 | [facility].EDCP ---
Discharge Plan Disposition Patient Disposition: Home, Self-Care Prescriptions Prescriptions: No Action lamotrigine 100 mg tablet 200 mg PO BID metoprolol succinate 25 mg tablet extended release 24 hr 25 mg PO HS 90 Days Qty: 90 3RF clonazepam 1 mg tablet 1 mg PO TIDP PRN (Reason: Anxiety) dapagliflozin propanediol [Farxiga] 10 mg tablet 10 mg PO DAILY Qty: 30 0RF spironolactone 25 mg tablet 25 mg PO DAILY Qty: 30 0RF Referrals Follow up/Referrals: Melly Bland PA [Primary Care Provider] - See instructions Jt Us MD [Staff Physician] - See instructions Activity Restrictions/Add. Instructions Additional Instructions/Restrictions: At this time it was felt you are safe to be discharged home. If new or worsening symptoms please do not hesitate to return the emergency department. We incidentally found a pulmonary nodule on your lung, most of these are benign however please follow-up with your family doctor for continued evaluation for this. Please call and schedule an appointment with Dr. Us as soon as you are able. Clinical Impressions Clinical Impression: Chest pain, Anxiety, Pulmonary nodule Discharge ED Provider: Francisco Miranda HPI <Indigo Adams MD - Last Filed: 08/21/23 14:09> General Chief Complaint: Chest Pain Stated Complaint: CP Time Seen by Provider: 08/21/23 13:57 Mode of Arrival: Ambulatory Source of Information: Patient Limitations: No Limitations Description of Symptoms (Recalled from ER Triage Doc. by RN): pt is here today bc she needed to know whether or not she should take a daily baby ASA so on her way here to ask that question she began having midsternal CP just prior to her arrival here in ER. pt states it goes to the left. pt is very anxious and tearful upon triage History of Present Illness HPI narrative: Send is a 57-year-old female presenting today with chest pain. States it started just prior to arrival. She was very anxious has a history of coronary disease had a CABG in the past has heart failure with reduced ejection fraction and states that she just wanted know whether not she need to take an aspirin she was very concerned about that as she claims that she was not instructed on this with recent interactions with other providers. She states that she got very anxious thinking about this and has been having chest pain substernal nonradiating nonexertional within the last hour. Related Data Home Medications Medication Instructions Recorded Confirmed lamotrigine 100 mg tablet 200 mg PO BID 10/07/17 08/16/23 clonazepam 1 mg tablet 1 mg PO TIDP PRN Anxiety 08/15/23 08/16/23 Previous Rx's Medication Instructions Recorded dapagliflozin propanediol 10 mg 10 mg PO DAILY #30 tabs 08/15/23 tablet (Farxiga) spironolactone 25 mg tablet 25 mg PO DAILY #30 tabs 08/15/23 metoprolol succinate 25 mg 25 mg PO HS 90 days #90 tabs 08/16/23 tablet,extended release 24 hr Allergies Allergy/AdvReac Type Severity Reaction Status Date / Time sulfamethoxazole Allergy Verified 08/16/23 14:48 [From Bactrim] trimethoprim [From Bactrim] Allergy Verified 08/16/23 14:48 adhesive AdvReac Verified 08/16/23 14:48 PFSH <Indigo Adams MD - Last Filed: 08/21/23 14:09> [facility] Disclaimer: The information contained in this section may have been updated after the patient was seen, as this information can be updated by other users. Medical History Cataract Post-op pain Pre-op evaluation Surgical History S/P ACL repair History of cholecystectomy S/P mitral valve repair Family History Other No significant family history Social History Smoking Status: Current every day smoker tobacco type: cigarettes alcohol intake: never current occupational status: unemployed and disabled Travel in the last 8 weeks: None household members: spouse <Indigo Adams MD - Last Filed: 08/21/23 14:09> ROS Obtained: Yes All systems reviewed & no additional complaints except as documented Physical Exam <Indigo Adams MD - Last Filed: 08/21/23 14:09> General General appearance: alert Respiratory Respiratory exam: Present normal lung sounds bilaterally Cardiovascular Cardiovascular exam: Present regular rate and normal rhythm Neurological Exam Neurological exam: Present alert and oriented X3 HEART Score <Indigo Adams MD - Last Filed: 08/21/23 14:09> HEART Score HEART Score assessment performed?: Yes History (anamnesis): Slightly suspicious ECG: Normal Age: 45-65 years Risk factors: Atherosclerosis history Troponin: </= normal limit HEART Score: 3 <Francisco Miranda MD - Last Filed: 08/21/23 17:02> HEART Score HEART Score: 3 Critical Care <Indigo Adams MD - Last Filed: 08/21/23 14:09> Critical Care Time Critical Care Time: No Medical Decision Making <Indigo Adams MD - Last Filed: 08/21/23 14:09> Denny Inquiry Pt receiving controlled substance: No Vital Signs Vital Signs: 08/21/23 13:04 08/21/23 13:22 08/21/23 13:27 Temperature 97.8 F Temperature Source Oral Pulse Rate 86 89 Pulse Rate [Left Radial] 89 Respiratory Rate 20 9 L Blood Pressure 140/96 H Blood Pressure [Right Arm] 140/96 H Blood Pressure Mean Blood Pressure Mean [Right Arm] 110 02 Sat by Pulse Oximetry 97 95 Oxygen Delivery Method Room Air 08/21/23 13:30 08/21/23 14:00 08/21/23 14:30 Temperature Temperature Source Pulse Rate 83 84 78 Pulse Rate [Left Radial] Respiratory Rate 14 13 20 Blood Pressure 145/89 H 153/98 H 123/82 Blood Pressure [Right Arm] Blood Pressure Mean 107 Blood Pressure Mean [Right Arm] 02 Sat by Pulse Oximetry 97 96 96 Oxygen Delivery Method Room Air 08/21/23 15:00 08/21/23 15:30 08/21/23 16:00 Temperature Temperature Source Pulse Rate 78 76 79 Pulse Rate [Left Radial] Respiratory Rate 24 13 26 H Blood Pressure 120/74 118/76 119/73 Blood Pressure [Right Arm] Blood Pressure Mean 85 Blood Pressure Mean [Right Arm] 02 Sat by Pulse Oximetry 95 95 94 L Oxygen Delivery Method 08/21/23 16:30 Temperature Temperature Source Pulse Rate 74 Pulse Rate [Left Radial] Respiratory Rate 16 Blood Pressure 124/71 Blood Pressure [Right Arm] Blood Pressure Mean Blood Pressure Mean [Right Arm] 02 Sat by Pulse Oximetry 96 Oxygen Delivery Method Room Air Lab Data Labs: Lab Results 08/21/23 13:13: WBC 7.8, RBC 4.73, Hgb 14.3, Hct 44.3, MCV 93.6, MCH 30.3, MCHC 32.4, RDW 13.7, Plt Count 273, MPV 8.1, Neut % (Auto) 61.4, Lymph % (Auto) 29.9, [place] % (Auto) 5.6, Eos % (Auto) 2.6, Baso % (Auto) 0.6, Neut # (Auto) 4.8, Lymph # (Auto) 2.3, [place] # (Auto) 0.4, Eos # (Auto) 0.2, Baso # (Auto) 0.1, Sodium 140, Potassium 3.6, Chloride 105, Carbon Dioxide 29, Anion Gap 9.6, BUN 11, Creatinine 1.20 H, Estimated Creat Clear 61, Estimated GFR 47 L, Est GFR ( Amer) 56 L, Glucose 102 H, Calcium 9.8, Total Bilirubin 0.4, AST 36, ALT 36, Alkaline Phosphatase 88, Troponin I < 0.01, Total Protein 6.9, Albumin 4.1, Globulin 2.8, Albumin/Globulin Ratio 1.5 08/21/23 16:20: Troponin I < 0.01 08/21/23 13:13 08/21/23 13:13 Response Orders (Tests/Meds): ED MEDICATIONS Generic Name Dose Route Start Last Admin Trade Name Freq PRN Reason Stop Dose Admin Sodium Chloride 10 ml 08/21/23 13:18 Sodium Chloride 0.9% 10ml Flush Syringe IV 09/20/23 13:17 NEEDED PRN Maintain IV Site Discontinued Medications Generic Name Dose Route Start Last Admin Trade Name Freq PRN Reason Stop Dose Admin Aspirin 324 mg 08/21/23 14:05 08/21/23 14:10 Aspirin 81mg Chewable Tablet PO 08/21/23 14:06 324 mg ONCE ONE Administration Lorazepam 1 mg 08/21/23 14:04 08/21/23 14:10 Lorazepam 1mg Tablet PO 08/21/23 14:05 1 mg ONCE ONE Administration ORDERS Category Date Time Status CXR --portable [XR chest portable] Stat Exams 08/21/23 13:18 Completed Complete Blood Count Auto Diff Stat Lab 08/21/23 13:13 Completed Comprehensive Metabolic Panel Stat Lab 08/21/23 13:13 Completed Troponin I Q3H Lab 08/21/23 16:20 Completed Troponin I Q3H Lab 08/21/23 19:30 Ordered Troponin I Stat Lab 08/21/23 13:13 Completed ECG Data Tracing #1: Attestation: I reviewed this ECG and interpreted as documented below: ECG Narrative: Ventricular rate of 87 no acute ischemic changes noted nonspecific ST and T wave abnormalities in lateral precordial leads normal axis normal sinus rhythm MDM Narrative Medical Decision Narrative: Well-appearing 57-year-old female low heart score EKG is nonconcerning symptoms are very low risk. I am not available embolism she is primarily very anxious she states that she was come to the emergency department today just to ask whether not she need to be taking a daily aspirin but she states nobody would answer this over the phone. She subsequently developed significant chest pain that she associates with anxiety and she is very anxious and tearful on my exam at the moment. Will get serial troponins given the duration of this but she will follow-up outpatient she given aspirin and Ativan will reassess. ED observation order has been placed at 2:07 PM serial troponins will be assessed and she will be discharged if negative. Care will be transitioned Dr. Amol Miranda at 3 PM. <Francisco Miranda MD - Last Filed: 08/21/23 17:02> Vital Signs Vital Signs: 08/21/23 13:04 08/21/23 13:22 08/21/23 13:27 Temperature 97.8 F Temperature Source Oral Pulse Rate 86 89 Pulse Rate [Left Radial] 89 Respiratory Rate 20 9 L Blood Pressure 140/96 H Blood Pressure [Right Arm] 140/96 H Blood Pressure Mean Blood Pressure Mean [Right Arm] 110 02 Sat by Pulse Oximetry 97 95 Oxygen Delivery Method Room Air 08/21/23 13:30 08/21/23 14:00 08/21/23 14:30 Temperature Temperature Source Pulse Rate 83 84 78 Pulse Rate [Left Radial] Respiratory Rate 14 13 20 Blood Pressure 145/89 H 153/98 H 123/82 Blood Pressure [Right Arm] Blood Pressure Mean 107 Blood Pressure Mean [Right Arm] 02 Sat by Pulse Oximetry 97 96 96 Oxygen Delivery Method Room Air 08/21/23 15:00 08/21/23 15:30 08/21/23 16:00 Temperature Temperature Source Pulse Rate 78 76 79 Pulse Rate [Left Radial] Respiratory Rate 24 13 26 H Blood Pressure 120/74 118/76 119/73 Blood Pressure [Right Arm] Blood Pressure Mean 85 Blood Pressure Mean [Right Arm] 02 Sat by Pulse Oximetry 95 95 94 L Oxygen Delivery Method 08/21/23 16:30 Temperature Temperature Source Pulse Rate 74 Pulse Rate [Left Radial] Respiratory Rate 16 Blood Pressure 124/71 Blood Pressure [Right Arm] Blood Pressure Mean Blood Pressure Mean [Right Arm] 02 Sat by Pulse Oximetry 96 Oxygen Delivery Method Room Air Lab Data Labs: Lab Results 08/21/23 13:13: WBC 7.8, RBC 4.73, Hgb 14.3, Hct 44.3, MCV 93.6, MCH 30.3, MCHC 32.4, RDW 13.7, Plt Count 273, MPV 8.1, Neut % (Auto) 61.4, Lymph % (Auto) 29.9, [place] % (Auto) 5.6, Eos % (Auto) 2.6, Baso % (Auto) 0.6, Neut # (Auto) 4.8, Lymph # (Auto) 2.3, [place] # (Auto) 0.4, Eos # (Auto) 0.2, Baso # (Auto) 0.1, Sodium 140, Potassium 3.6, Chloride 105, Carbon Dioxide 29, Anion Gap 9.6, BUN 11, Creatinine 1.20 H, Estimated Creat Clear 61, Estimated GFR 47 L, Est GFR ( Amer) 56 L, Glucose 102 H, Calcium 9.8, Total Bilirubin 0.4, AST 36, ALT 36, Alkaline Phosphatase 88, Troponin I < 0.01, Total Protein 6.9, Albumin 4.1, Globulin 2.8, Albumin/Globulin Ratio 1.5 08/21/23 16:20: Troponin I < 0.01 Response Orders (Tests/Meds): ED MEDICATIONS Generic Name Dose Route Start Last Admin Trade Name Freq PRN Reason Stop Dose Admin Sodium Chloride 10 ml 08/21/23 13:18 Sodium Chloride 0.9% 10ml Flush Syringe IV 09/20/23 13:17 NEEDED PRN Maintain IV Site Discontinued Medications Generic Name Dose Route Start Last Admin Trade Name Freq PRN Reason Stop Dose Admin Aspirin 324 mg 08/21/23 14:05 08/21/23 14:10 Aspirin 81mg Chewable Tablet PO 08/21/23 14:06 324 mg ONCE ONE Administration Lorazepam 1 mg 08/21/23 14:04 08/21/23 14:10 Lorazepam 1mg Tablet PO 08/21/23 14:05 1 mg ONCE ONE Administration ORDERS Category Date Time Status CXR --portable [XR chest portable] Stat Exams 08/21/23 13:18 Completed Complete Blood Count Auto Diff Stat Lab 08/21/23 13:13 Completed Comprehensive Metabolic Panel Stat Lab 08/21/23 13:13 Completed Troponin I Q3H Lab 08/21/23 16:20 Completed Troponin I Q3H Lab 08/21/23 19:30 Ordered Troponin I Stat Lab 08/21/23 13:13 Completed MDM Narrative Medical Decision Narrative: Well-appearing 57-year-old female low heart score EKG is nonconcerning symptoms are very low risk. I am not available embolism she is primarily very anxious she states that she was come to the emergency department today just to ask whether not she need to be taking a daily aspirin but she states nobody would answer this over the phone. She subsequently developed significant chest pain that she associates with anxiety and she is very anxious and tearful on my exam at the moment. Will get serial troponins given the duration of this but she will follow-up outpatient she given aspirin and Ativan will reassess. ED observation order has been placed at 2:07 PM serial troponins will be assessed and she will be discharged if negative. Care will be transitioned Dr. Amol Miranda at 3 PM. Francisco Miranda: Upon assumption of care patient was hemodynamically stable. Workup reviewed by me, hematologic labs are nonactionable, no KIMI per rifle criteria. Serial troponins are undetectably low. On repeat evaluation patient continued to be well-appearing. Nodular opacity on chest x-ray was relayed that we will need outpatient follow-up and patient verbalized understanding. Patient will follow-up with cardiology on Tuesday and was given return precautions.
[2023-08-21] MEDS: ASPIRIN 81MG CHEWABLE TABLET 324 MG PO (14:10)
[2023-08-21] MEDS: LORazepam 1MG TABLET 1 MG PO (14:10)
--- NOTE | 2023-08-21 14:49 | PC.NURSE ---
PT RESTING IN BED. NO NEEDS VOICED AT THIS TIME. CALL LIGHT WITHIN REACH
[2023-08-21 17:00] LABS: Troponin I < 0.01 ng/ml (0.00-0.034)
== END 2023-08-21 17:05 | disposition home or self-care (01) ==
PROVIDERS: Student in an Organized Health Care Education/Training Program; Emergency Provider Emergency Medicine; PCP Physician Assistant
DX: R07.9 Chest pain, unspecified (principal); F41.1 Generalized anxiety disorder; R91.1 Solitary pulmonary nodule; F17.210 Nicotine dependence, cigarettes, uncomplicated; I11.0 Hypertensive heart disease with heart failure; I50.20 Unspecified systolic (congestive) heart failure; Z95.1 Presence of aortocoronary bypass graft
CPT/HCPCS: 71045; 80053; 84484; 85025; 93005; 99284

== ENCOUNTER 2023-08-23 06:47 | Outpatient (CLI) | payer MEDICARE, SELFPAY ==
--- NOTE | 2023-08-23 06:53 | NM_ITS ---
APPROVED REPORT Exam: Nuclear Stress Test Indication: Chest pain, SOB, HTN, High cholesterol, Tobacco use, Family history, CAD Patient Location: Outpatient Stress Tech: Crystal Duarte [place] Tech:Dina Velasquez, ARRT, RT (R)(N) Ht: 5 ft 7 in Wt: 160 lbs Bra Size: 36C HR: 98 bpm BP: 131/82 mmHg BSA: 1.84 m2 TID: 1.06 BMI: 25.0 History: Chest pain, SOB, HTN, High cholesterol, Tobacco use, Family history, CAD Procedure: Patient received 0.4 mg of intravenous AdenosineLexiscan, resting heart rate 98 bpm, resting blood pressure 131/82 mmHg, with Lexiscan maximum heart rate achieved was 109 bpm which is % of the maximum predicted heart rate and blood pressure was 131/82 mmHg. With Lexiscan, patient denied any complaint of chest pain. Cardiac Stress and Resting SPECT Images: Cardiac Stress and Resting SPECT images were obtained using technetium 99m Myoview 32.1 mCi stress and 10.30 mCi at rest. Resting and stress imaging in supine and prone positions demonstrate no evidence of fixed or reversible perfusion defects. Gated imaging demonstrates mild reduction in global LV systolic function. LVEF is calculated at 48%. Conclusion: No evidence of fixed or reversible perfusion defects. Gated imaging demonstrates mild reduction in global LV systolic function. LVEF is calculated at 48%. Electronically signed by : Marielena Wu MD 08/23/2023 12:56:48
[2023-08-23] MEDS: REGADENOSON 0.4MG/5ML SYRINGE 0.400000000000000022 MG IV (09:17)
[2023-08-23] MEDS: SODIUM CHLORIDE 0.9% 10ML SYR (RAD ONLY) 10 ML IV ×2 (09:17)
[2023-08-23] MEDS: ISOTOPE MYOVIEW (PER STUDY) 1 DOSE IV (09:18)
--- NOTE | 2023-08-23 10:30 | CA_ITS ---
APPROVED REPORT Exam: Pharmacologic Technologist: Crystal Duarte, Ht: 5 ft 6 in Wt: 164 lbs BSA: 1.84 m2 HR: 96 bpm BP: 131/82 mmHg Rhythm: NSR Indications: CAD Medical History Medications: Metoprolol,,,,, Farxiga,,,,, ClonAZEPAM,,,,, SpirOnolactone,,,,, LaMotrigine,,,,, Stress Test Details Test: LEXISCAN Reason for pharmacologic stress test: physical limitation. HR Resting HR: 98 bpm Max Heart Rate (APMHR): 165 bpm Max HR Achieved: 109 bpm Target HR (85% APMHR): 140 bpm % of APMHR: 66 Recovery HR: 101 bpm BP Resting BP: 131.0/82.0 mmHg Max BP: 131.0/82.0 mmHg Recovery BP: 115.0/71.0 mmHg ECG Resting ECG: SR Stress ECG: No significant ST changes Arrhythmia: None Clinical Exercise duration: 04:00 min Highest Stage Achieved: Stress ECG Conclusion Symptoms: No CP/SOB Arrhythmias/Ectopy: none ST-T Changes: No significant ST changes Conclusion: Abnormal ECG at baseline. Unremarkable Lexiscan stress test. Myoview images are reported separately. Test Summary REST . . . . . . . Resting REST 05:50 . . 98 . 131/ 82 . . Stage 1 . . . . . . . Myoview Injected Stage 1 01:00 . . 105 . . . . Stage 2 01:00 . . 107 . 110/ 68 . . Stage 3 01:00 . . 105 . 115/ 72 . . Stage 4 01:00 . . 105 . 118/ 64 . Stop exercise at 04:00 RECOVERY 01:00 . . 101 . . . . RECOVERY 02:00 . . 103 . 109/ 70 . . RECOVERY 03:00 . . 102 . 115/ 71 . . RECOVERY 03:16 . . 102 . 115/ 71 . . Electronically signed by : Marielena Wu MD 08/23/2023 12:50:23
--- NOTE | 2023-08-26 10:49 | P.EN_ITS ---
Phone call was received today at 1035 from patient. initially called and handed phone to the patient. Patient was concerned about her recent stress test. Seemed quite anxious on the phone. Made comments about wanting to hurt herself. I encouraged the patient to seek help immediately and go to the hospital locally as she lives near [place]. She stated she could make her own decisions and I could not tell her what to do. I reiterated that she needed to seek help if she truly felt like hurting herself at this time. Patient has an extensive history of severe ear and 82. All has his mitral stenosis with repair. Was frustrated that her stress test did not show that she needed a cath. [place] that cardiology was not addressing her needs appropriately. Reiterated that her stress test looked good with no perfusion defects. EF 48%, consistent with echo 1 week earlier at 45%. She is concerned that this is different from an echo in April. Was not on medical management prior to being admitted to our facility a little over a week ago. Then made threats about filing board complaints if she was not getting get the help she needed. I informed her that that was not appropriate. Recommended that she seek help for her thoughts of self-harm. Stated to her to please take of her concerns with cardiology in regard to her stress test finding. Patient then made threats about cardiology and reporting one of the providers to the board for a domestic reason. Informed the patient was not appropriate to make threats against my colleagues. She then said she did not make a threat that was very clearly heard by me. Asked her at that time to please refer all of her further questions to cardiology, patient hung up.
== END 2023-08-23 23:59 | disposition home or self-care (01) ==
LOC: RAD 06:48
PROVIDERS: PCP Physician Assistant; Visit Provider Internal Medicine
DX: I25.10 Atherosclerotic heart disease of native coronary artery without angina pectoris (principal); I50.20 Unspecified systolic (congestive) heart failure; R53.83 Other fatigue; I49.3 Ventricular premature depolarization
CPT/HCPCS: 78452; 93017; 93018; A9502; J2785